=== PATIENT | female | born 1955 | race Caucasian/White ===

== ENCOUNTER → 2016-07-05 | Outpatient (CLI) | payer OTHER ==
[~2016-07-05] MED LIST: 'XANAX0.5 MG PO; ALAVERT10 M1 PO; ALVESCO80 MCG/ACT IH; ARAVA20 MG PO; ASPIR-TRIN325 MG PO; ASPIRIN325 M2 PO; ASPIRIN325 MG PO; ATENOLOL100 MG PO; BISACODYL5 MG PO; CEFTRIAXON2 GM/50 ML IV; CELEBREX200 MG PO; CENTRUM1 TA1 PO; CHLORTHALIDONE25 MG PO; CORRECTIVE LAXAT5 MG PO; DUONEB 3 MG/3 ML3 M1 INH; FISH OIL 10001000 MG PO; FLONASE0.05 MG/AC NAS; IBUPROFEN400 MG PO; METFORMIN500 MG PO; MULTIVITAMIN1 CTB PO; NEXIUM40 MG PO; NYSTAT-RX1 POW; OMEGA-3 FISH1200 MG PO; PLAQUENIL200 MG PO; PREDNISONE10 MG PO; PREDNISONE20 MG PO; PROAIR HFA0.09 MG/AC IH; PROTONIX40 MG PO; SOLU-MEDROL IV; VANCOMYCIN IV; VI-C1 CAP PO; VICODIN ES 7501 TAB PO; VITAMIN C1000 M2 PO
[2016-07-05 11:36] LABS: BASO # 0.1 10*3/uL (0.0-0.1); BASO % 0.5 % (0.0-1.0); EOS # 0.2 10*3/uL (0.0-0.4); EOS % 1.9 % (1.0-4.0); HEMATOCRIT 38.2 % (37.0-47.0); HEMOGLOBIN 11.9 g/dl (12.0-16.0); LYMPH # 2.1 10*3/uL (1.3-4.4); LYMPH % 21.6 % (27.0-41.0); MEAN CELL VOLUME 87.6 fl (81.0-99.0); MEAN CORPUSCULAR HGB 27.3 pg (27.0-31.0); MEAN CORPUSCULAR HGB CONC 31.2 g/dl (33.0-37.0); MEAN PLATELET VOLUME 9.5 fl (9.6-12.3); MONO # 0.9 10*3/uL (0.1-1.0); MONO % 9.2 % (3.0-9.0); NEUT # 6.6 10*3/uL (2.3-7.9); NEUT % 66.4 % (47.0-73.0); PLATELET COUNT AUTOMATED 287 10*3/uL (130-400); RED BLOOD COUNT 4.36 10*6/uL (4.10-5.10); RED CELL DISTRI WIDTH 15.3 % (0-14.5); WHITE BLOOD COUNT 9.9 10*3/uL (4.8-10.8)
[2016-07-05 12:24] LABS: ALBUMIN 3.4 gm/dl (3.1-4.5); ALKALINE PHOSPHATASE 60 U/L (45-117); BILIRUBIN, TOTAL 0.4 mg/dl (0.2-1.0); BUN 19 mg/dl (7-24); CARBON DIOXIDE 29 mmol/L (21-32); CHLORIDE 104 mmol/L (98-107); CHOLESTEROL 187 mg/dL (<200); EST GLOM FILT AFRICAN AMERICAN > 60 ml/min; FREE T4 1.12 ng/dl (0.76-1.46); GLUCOSE 98 mg/dL (65-99); HDL CHOLESTEROL 76 mg/dl (40-60); LDL CHOLESTEROL 79 mg/dL (9-159); POTASSIUM 3.6 mmol/L (3.5-5.1); SGOT/AST 12 IU/L (3-35); SGPT/ALT 20 U/L (12-78); SODIUM 142 mmol/L (136-145); TOTAL PROTEIN 7.4 gm/dL (6.4-8.2); TRIGLYCERIDES 162 mg/dl (<150); VLDL CHOLESTEROL 32 mg/dL (6-40)
[2016-07-05 13:33] LABS: FOLIC ACID 9.67 ng/mL (>5.38)
[2016-07-05 14:03] LABS: VITAMIN D, 25-HYDROXY 89.7 ng/mL (30-100)
== END | disposition home or self-care (01) ==
LOC: LAB 03:00
PROVIDERS: Internal Medicine
DX: Z00.00 Encounter for general adult medical examination without abnormal findings (principal); Z13.1 Encounter for screening for diabetes mellitus; Z13.21 Encounter for screening for nutritional disorder; Z13.220 Encounter for screening for lipoid disorders; E11.65 Type 2 diabetes mellitus with hyperglycemia; M06.9 Rheumatoid arthritis, unspecified; I27.0 Primary pulmonary hypertension; R06.02 Shortness of breath; J18.9 Pneumonia, unspecified organism; E55.9 Vitamin D deficiency, unspecified; R53.81 Other malaise

== ENCOUNTER → 2016-12-29 | Outpatient (CLI) | payer OTHER | END | disposition home or self-care (01) | LOC: US 02:21 | DX: I65.23 Occlusion and stenosis of bilateral carotid arteries (principal); R20.0 Anesthesia of skin ==

== ENCOUNTER → 2017-07-11 | Outpatient (CLI) | payer OTHER ==
[~2017-07-11] MED LIST changes: +COREG3.125 MG PO; +COZAAR50 M1 PO; +LASIX20 MG PO; +LEXAPRO20 MG PO; +POTASSIUM CHLO20 ME3 PO; +SEREVENT DISKU50 MCG INH; +SILDENAFIL20 M1 PO; +STRIVERDI RESPIM4 GM INH
--- NOTE | ~2017-07-11 | ST ---
[place], [place] EXERCISE STRESS TEST REPORT NAME: DIOMEDES MULLER UNIT #: [id number] ROOM: DOCTOR: BRANDON BARRIOS MD BIRTHDATE: [birth year] DOS: 07/11/2017 LEXISCAN STRESS EKG REFERRING PHYSICIAN: Dr. Zuleta. INDICATION: pain and shortness of breath. The patient underwent standard protocol Lexiscan stress EKG. The patient's baseline EKG is normal sinus with nonspecific ST-T wave changes. The patient's baseline heart rate is 84 with blood pressure 154/90. The patient's peak heart rate was 93 with blood pressure 158/90. The patient denied any chest pain, was not known to have any arrhythmias or EKG changes. SUMMARY OF FINDINGS: Unremarkable Lexiscan stress EKG. Please see separate report for perfusion scan results. BRANDON BARRIOS MD CM:STRESS:EXERCISE STRESS TEST REPORT [id number] BRANDON BARRIOS MD
== END | disposition home or self-care (01) ==
LOC: CARD 07-06 10:00
DX: R06.02 Shortness of breath (principal); R68.84 Jaw pain

== ENCOUNTER → 2017-12-20 | Outpatient (CLI) | payer OTHER | END | disposition home or self-care (01) | LOC: CARD 01:29 | DX: I27.20 Pulmonary hypertension, unspecified (principal) ==

== ENCOUNTER → 2018-09-19 | Outpatient (CLI) | payer OTHER, MEDICARE ==
[2018-09-19 11:35] LABS: BASO # 0.1 10*3/uL (0.0-0.1); BASO % 0.8 % (0.0-1.0); EOS # 0.3 10*3/uL (0.0-0.4); EOS % 3.7 % (1.0-4.0); HEMATOCRIT 41.8 % (37.0-47.0); HEMOGLOBIN 12.5 g/dl (12.0-16.0); LYMPH # 2.5 10*3/uL (1.3-4.4); LYMPH % 29.5 % (27.0-41.0); MEAN CORPUSCULAR HGB 26.3 pg (27.0-31.0); MEAN CORPUSCULAR HGB CONC 29.9 g/dl (33.0-37.0); MEAN PLATELET VOLUME 9.6 fl (9.6-12.3); MONO # 0.6 10*3/uL (0.1-1.0); MONO % 7.3 % (3.0-9.0); NEUT % 58.5 % (47.0-73.0); PLATELET COUNT AUTOMATED 278 10*3/uL (130-400); RED BLOOD COUNT 4.75 10*6/uL (4.10-5.10); RED CELL DISTRI WIDTH 16.2 % (0-14.5); WHITE BLOOD COUNT 8.6 10*3/uL (4.8-10.8)
[2018-09-19 11:47] LABS: BUN 26 mg/dl (7-24); CHLORIDE 104 mmol/L (98-107); CREATININE 0.98 mg/dL (0.55-1.02); POTASSIUM 3.9 mmol/L (3.5-5.1); SODIUM 141 mmol/L (136-145)
== END | disposition home or self-care (01) ==
LOC: LAB 11:10
PROVIDERS: Internal Medicine Cardiovascular Disease
DX: I50.33 Acute on chronic diastolic (congestive) heart failure (principal); R06.02 Shortness of breath

== ENCOUNTER → 2019-05-06 | Outpatient (CLI) | payer MEDICARE ==
[~2019-05-06] MED LIST changes: +ALPRAZOLAM0.5 M3 PO; +CELECOXIB200 M1 PO; +CLARITIN10 MG PO; +GLUCOPHAGE500 M1 PO; +HYDROCODONE-AC1 EACH PO; +LIPITOR20 MG PO; -METFORMIN500 MG PO; +PREDNISONE5 MG PO; +VITAMIN C1000 M5 PO; +VITAMIN D35000 UNIT PO; +XANAX XR0.5 MG PO
== END | disposition home or self-care (01) ==
LOC: RAD 14:41
DX: M85.88 Other specified disorders of bone density and structure, other site (principal)

== ENCOUNTER 2019-05-21 07:01 | Inpatient (IN) | payer MEDICARE ==
[~2019-05-21] VITALS: Ht 154.9 cm; Wt 88.9 kg
[~2019-05-21 07:01] MED LIST changes: -ALPRAZOLAM0.5 M3 PO; -CELECOXIB200 M1 PO; -CLARITIN10 MG PO; -HYDROCODONE-AC1 EACH PO; -LIPITOR20 MG PO; -PREDNISONE5 MG PO; -VITAMIN C1000 M5 PO; -VITAMIN D35000 UNIT PO; -XANAX XR0.5 MG PO
[2019-05-21 07:02] VITALS: BP 155/85
[2019-05-21 09:20] VITALS: BP 188/93
--- NOTE | 2019-05-21 10:24 | NUR ---
PATIENT TAKEN TO 5TH FLOOR BY YUNG RAHMAN AT THIS TIME. REPORT GIVEN TO YUNG RAHMAN AND PADMA CUETO RN AT THIS TIME. NO CHANGE IN PATIENT STATUS.
--- NOTE | 2019-05-21 10:30 | NUR ---
Time: 1029 A 63 year old FEMAL admitted to 5E under services of DR. IDALIA CASTRO,ROXANNE. Pt. arrived via bed from ER. Chief complaint: INTRACTABLE BACK PAIN. YUNG MORALES
--- NOTE | 2019-05-21 10:36 | NUR ---
YUNG RAHMAN NOTIFED OF PATIENT NOT TAKING BP MED THIS MORNING.
[2019-05-21] MEDS ORDERED: CLARITIN10 MG PO (10:57)
[2019-05-21] MEDS ORDERED: ARAVA20 MG PO (10:57)
[2019-05-21] MEDS ORDERED: XANAX XR0.5 MG PO (10:58)
[2019-05-21] MEDS ORDERED: LIPITOR20 MG PO (10:58)
[2019-05-21] MEDS ORDERED: VITAMIN D35000 UNIT PO (10:59)
[2019-05-21] MEDS ORDERED: VITAMIN C1000 M5 PO (10:59)
[2019-05-21] MEDS ORDERED: ALPRAZOLAM0.5 M3 PO (11:22)
--- NOTE | 2019-05-21 11:50 | NUR ---
MEDICATED WITH PO NORCO AND XANAX ORDERED PER PT REQUEST FOR C/O PAIN RATED 10/10 TO LUMBAR AREA/BUTTOCKS AND ANXIETY. PT LEAVING FOR LUMBAR MRI.
--- NOTE | 2019-05-21 13:00 | NUR ---
MEDICATIONS EFFECTIVE FOR PAIN/ANXIETY.
[2019-05-21 15:56] VITALS: BP 155/87
[2019-05-21 20:00] VITALS: BP 147/83
--- NOTE | 2019-05-21 21:16 | NUR ---
PRN NORCO GIVEN FOR PT COMPLAINTS OF 7/10 BACK PAIN. CALL LIGHT WITHIN REACH,WILL CHAIM
--- NOTE | 2019-05-21 23:43 | NUR ---
NOTIFIED DR. FRIEDMAN OF PATIENTS BLOOD PRESSURE BEING 168/100. PATIENT STATED THAT SHE ISN'T IN TOO MUCH PAIN RIGHT NOW. ORDER RECIEVED FOR 0.1MG OF CLONIDINE TO BE GIVEN NOW
--- NOTE | 2019-05-22 04:27 | NUR ---
PT SLEEPING, NO DISTRESS. CALL LIGHT WITHIN REACH
--- NOTE | 2019-05-22 06:54 | NUR ---
NOTIFIED DR. FRIEDMAN OF PATIENT CRYING IN PAIN. NOTIFIED HER SHE WAS JUST GIVEN A NORCO BUT IS IN SEVERE PAIN. ORDER RECIEVED FOR 0.25MG OF DIALUDID
--- NOTE | 2019-05-22 07:33 | NUR ---
PATIENTS PAIN A LITTLE BETTER AT THIS TIME. CALL LIGHT WITHIN REACH, WILL MONITOR
[2019-05-22 08:00] VITALS: BP 164/94
--- NOTE | 2019-05-22 08:21 | NUR ---
Notified Dr. Song Bernard is away until 06/[address] Mullins having phone coverage starting 05/24.
--- NOTE | 2019-05-22 08:56 | NUR ---
PHYSICAL THERAPY Screen recieved as well as orders for Physical Therapy will follow thank you Britt Nagel PT
--- NOTE | 2019-05-22 09:00 | NUR ---
Hot Plate Plywood Press Laborer in to talk to patient. Patient states lives at home with her . There are 1 steps in the home. Physician: Dr. Katharina Zuleta [facility]acy: [facility] [place] Home health services: none Patient's level of ADLs: INDEPENDENT Patient has working utilities: yes DME: O2 @ 4L nc, portable O2 tanks, nebulizer, O2 supplier [employer] Follow-up physician's appointment after d/c: she prefers to make her own follow up appt after discharge Does patient want to access PORTAL?: no Discharge plan discussed with patient. at bedside. She lives at home with her . She is normally independent in her ADLs and ambulation. Discussed home health care services and she denies any home needs at this time. When medically stable she will be discharged to home. Her will provide transportation on discharge. Disc bulge L3-4 on MRI lumbar spine. Discussed discharge planning with Dr. Zuleta. Started dilaudid for prn pain control, gabapentin, and solumedrol. GIAN ALCAZAR
[2019-05-22 09:23] LABS: BASO % 0.3 % (0.0-1.0); EOS % 0.2 % (1.0-4.0); HEMATOCRIT 43.4 % (37.0-47.0); LYMPH % 8.1 % (27.0-41.0); MEAN CELL VOLUME 89.5 fl (81.0-99.0); MEAN CORPUSCULAR HGB 26.8 pg (27.0-31.0); MEAN PLATELET VOLUME 9.4 fl (9.6-12.3); MONO # 0.3 10*3/uL (0.1-1.0); MONO % 2.5 % (3.0-9.0); NEUT # 10.5 10*3/uL (2.3-7.9); NEUT % 88.6 % (47.0-73.0); PLATELET COUNT AUTOMATED 320 10*3/uL (130-400); RED BLOOD COUNT 4.85 10*6/uL (4.10-5.10); RED CELL DISTRI WIDTH 15.8 % (0-14.5); WHITE BLOOD COUNT 11.8 10*3/uL (4.8-10.8)
[2019-05-22 10:01] LABS: POTASSIUM 4.8 mmol/L (3.5-5.1)
[2019-05-22 10:10] LABS: ALBUMIN 3.1 gm/dl (3.1-4.5); CREATININE 1.41 mg/dL (0.55-1.02); TOTAL PROTEIN 7.8 gm/dL (6.4-8.2)
--- NOTE | 2019-05-22 11:34 | NUR ---
Occupational Therapy evaluation completed on 5 with full eval to follow. Precautions include severe back pain, new ww use, o2 dependent, fall risk, assist w/ ADLs, moderate complexity level [id number]. Recommend SNF but patient insists upon d/c home w/ . Patient is agreeble but hesitant about home health SN,OT,PT upon d/c. Thank you. Aria Lopez OTR/l
--- NOTE | 2019-05-22 12:15 | NUR ---
Nursing screen and Occupational Therapy referral received. Thank you. Aria Lopez OTR/L
--- NOTE | 2019-05-22 12:20 | NUR ---
PHYSICAL THERAPY Eval completed pt moderate level of complexity 92420 pt would benefit from further rehab prior to home as functionally very limited due to pain however she states she will go home, may need FWW as unsure if has one at home and was he sisters. PT to work on Transfers, LB education with reg to tranfers/positioning for protection, Amb with AD for safety and increase mobility. Britt Nagel PT
[2019-05-22 16:00] VITALS: BP 146/82
--- NOTE | 2019-05-22 16:01 | NUR ---
Medicated with dilaudid per prn order for c/o back pain and left leg pain.
--- NOTE | 2019-05-22 17:00 | NUR ---
States that dilaudid was effective.
[2019-05-22 20:00] VITALS: BP 138/80
--- NOTE | 2019-05-22 20:01 | NUR ---
PRN DILAUDID AND NORCO GIVEN AT THIS TIME FOR PT COMPLAINTS OF 10/10 BACK PAIN. PATIENT LAYING ON SIDE CRYING. CALL LIGHT WITHIN REACH, WILL MONITOR
--- NOTE | 2019-05-22 22:25 | NUR ---
PRN MEDICATION EFFECTIVE PER PT
[2019-05-23] VITALS: BP 142/80
--- NOTE | 2019-05-23 00:01 | NUR ---
PRN DILAUDID GIVEN FOR PT COMPLAINTS OF DISTRESSING PAIN RATING IT 8/10. CALL LIGHT WITHIN REACH, WILL MONITOR
--- NOTE | 2019-05-23 00:45 | NUR ---
PT STATES PAIN MEDICATION EFFECTIVE. MORE PILLOWS PROVIDED FOR PATIENT FOR COMFORT
--- NOTE | 2019-05-23 02:15 | NUR ---
PRN NORCO GIVEN FOR PT COMPLAINTS OF BACK PAIN GOING DOWN HER LEGS RATING IT 4/10. CALL LIGHT WITHIN REACH, WILL MONITOR
--- NOTE | 2019-05-23 06:50 | NUR ---
PRN DILAUDID GIVEN FOR PT COMPLAINTSOF PAIN RATING IT 12/18.CALL LIGHT WITHIN REACH, WILL MONITOR
--- NOTE | 2019-05-23 07:30 | NUR ---
VITALS STABLE. ALERT AND ORIENTED X 3. REECE. CAP REFILL < 3 SECONDS. SKIN TURGOR NON-TENTING. HEART SOUNDS NORMAL. POSITIVE PEDAL PULSES. RESPIRATIONS EASY AND NON-LABORED. PO2 96% ON 4L N/C. LUNGS CLEAR THROUGHOUT. ABDOMEN SOFT, NON-TENDER, NON-DISTENDED. BOWEL SOUNDS X 4. SKIN WARM, DRY AND INTACT. IV IN RIGHT ANTECUBITAL INTACT- NO REDNESS OR SWELLING. PT PLEASANT AND COOPERATIVE. NO COMPLAINTS AT THIS TIME. WILL CONTINUE TO ASSESS. EDI TOSCANO [facility]
[2019-05-23 08:00] VITALS: BP 144/88
--- NOTE | 2019-05-23 08:17 | NUR ---
OT NOTE Pt was seen this A.M. 1:1 for 17 minute OT session. Upon arrival pt was supine in bed. Pt identified by name and and had complaints of 5/10 low back pain and 6/10 LLE pain. Pt presented to therapy with continuous 5L-O2 via NC which she remained on throughout the entire session. Pt transferred supine to sit EOB with SBA. While sitting EOB pt donned B shoes with SBA. Sit to stand completed from bed level with CGA for safety followed by functional mobility into the bathroom with CGA and use of w/w. There she transferred on/off standard commode with CGA and use of grab bar for UE support. Functional mobility then completed to the bedside chair with CGA and use of w/w with one seated rest break. Pt was left sitting upright in the bedside chair with call light in hand, tray table in place, and phone in reach. Continue with rec D/C plan to SNF. OZZIE Garzon
--- NOTE | 2019-05-23 08:19 | NUR ---
GIVEN NORCO 1 TAB PO FOR PT COMPLAINTS OF 8/10 BACK/LEG PAIN AFTER PHYSICAL THERAPY. PT SITTING UP IN CHAIR WITH CALL LIGHT IN REACH. WILL CONTINUE TO ASSESS. EDI FERRARI
--- NOTE | 2019-05-23 09:00 | NUR ---
Musical Instrument Supervisor in to see patient. She is sitting up in her bedside chair without distress noted eating breakfast. at bedside. No new needs or request at this time. When medically stable she will be discharged to home. Per patient Dr. Zuleta said she will discharge her tomorrow as long as she remains stable.
--- NOTE | 2019-05-23 09:04 | NUR ---
PHYSICAL THERAPY Patient presented to therapy in supine with head of bed elevated and visitng in room with patient. Patient was identified by name umair CARRASCO on wristband. Patient gives informed consent for treamtment. Patient has report of 5/10 pain in the low back and 6/10 pain in the L LE. Patient is on 5 liters of spoO2 VIA NASAL CANULA. Patient performed supine to sitting transfer to EOB with SBA. Patient performed sit to stand transfer from EOB with SBA. Patient ambulated 55' x 1 with Wh Walker and CGA x 1 with increased pain on L LE when wt bearing. Patient sat in low chair with MIN A X 1. Patient sit to stand from low chair with MIN A X 1. Patient left in bedside chair with call light within reach and connected to wall outlet with 5 liters of spO2. Patient's was visiting in room with patient. Patient was 1:1 with this MILL CONTROLLER for 18 minutes total. LYNNETTE JONES MILL CONTROLLER
--- NOTE | 2019-05-23 09:19 | NUR ---
ERAN EFFECTIVE. PT RATES PAIN A /10. ASKING IF SHE CAN GET UP AND GET A SHOWER. WILL CONTINUE TO ASSESS. EDI TOSCANO [facility]
--- NOTE | 2019-05-23 11:06 | NUR ---
PT RESTING IN BED. RESPIRATIONS EASY AND REGULAR. PLEASANT AND COOPERATIVE. NO COMPLAINTS AT THIS TIME. WILL CONTINUE TO ASSESS. EDI FERRARI
--- NOTE | 2019-05-23 14:47 | NUR ---
PHYSICAL THERAPY CO-SIGN I approve of the Physical Therapy notes written above. Britt Nagel PT
--- NOTE | 2019-05-23 15:45 | NUR ---
Medicated with norco per prn order for complaints back pain.
[2019-05-23 16:00] VITALS: BP 124/79
--- NOTE | 2019-05-23 16:30 | NUR ---
States that norco was effective.
--- NOTE | 2019-05-23 19:51 | NUR ---
24 HR chart check completed.
[2019-05-23 20:00] VITALS: BP 141/47
--- NOTE | 2019-05-23 21:00 | NUR ---
RESTING IN BED WITH NO ACUTE DISTRESS NOTED. RESPIRATIONS EASY. LUNGS DIMINISHED, CLEAR. PULSE OX 100% 4L. CALL LIGHT WITHIN REACH. NO VOICED COMPLAINTS. BED ALARM MAINTAINED FOR SAFETY. PRESENT AT BEDSIDE
--- NOTE | 2019-05-23 21:47 | NUR ---
REQUESTED AND RECEIVED DILAUDID IV PER PRN ORDER FOR COMPLAINTS OF LEFT HIP PAIN RATING A 7. CALL LIGHT WITHIN REACH. WILL MONITOR FOR EFFECTIVENESS
[2019-05-24] VITALS: BP 147/70
--- NOTE | 2019-05-24 | NUR ---
MEDS APPEAR EFFECTIVE. SLEEPING. RESPIRATIONS EASY. VSS. CALL LIGHT WITHIN REACH. BED ALARM MAINTAINED FOR SAFETY
[2019-05-24] MEDS ORDERED: CELECOXIB200 M1 PO (00:33)
--- NOTE | 2019-05-24 01:52 | NUR ---
DR FRIEDMAN HERE TO ASSESS PATIENT AND DISCUSS PLAN OF CARE
--- NOTE | 2019-05-24 03:05 | NUR ---
awake, assisted to br by . upon returning to bed patient in tears and c/o left hip pain rating a 10. medicatde with norco and xanax per prn order. will monitor
--- NOTE | 2019-05-24 05:00 | NUR ---
EARLIER MEDS APPEAR EFFECTIVE. SLEEPING
--- NOTE | 2019-05-24 06:03 | NUR ---
MEDICATED WITH DILAUDID IV PER PRN ORDER FOR COMPLAINTS OF LEFT HIP PAIN RATING A 9. CALL LIGHT WITHIN REACH. WILL MONITOR FOR EFFECTIVENESS. PRESENT AT BEDSIDE
--- NOTE | 2019-05-24 06:03 | NUR ---
MEDICATED WITH DILAUDID IV PER PRN ORDER FOR COMPLAINTS OF LEFT HIP PAIN RATING A 9. CALL LIGHT WITHIN REACH. WILL MONITOR FOR EFFECTIVENESS
[2019-05-24 08:00] VITALS: BP 138/98
--- NOTE | 2019-05-24 09:30 | NUR ---
PT NORCO GIVEN FOR C/O OF PAIN
--- NOTE | 2019-05-24 14:15 | NUR ---
PT C/O OF ANXIETY AND ABD PAIN PRN DILAUDID AND XANAX GIVEN PER ORDER
[2019-05-24 16:00] VITALS: BP 124/80
--- NOTE | 2019-05-24 16:14 | NUR ---
MA NORCO GIVEN PER ORDER FOR C/O OF BACK PAIN
--- NOTE | 2019-05-24 16:15 | NUR ---
PRN NORCO GIVEN FOR BACK PAIN RATING 5/10
[2019-05-25] VITALS: BP 155/98
--- NOTE | 2019-05-25 05:45 | NUR ---
PRN NORCO GIVEN FOR LEFT HIP PAIN RATING A 10/10. CALL LIGHT IS WITHIN REACH.
[2019-05-25 06:44] LABS: BASO % 0.1 % (0.0-1.0); HEMATOCRIT 40.3 % (37.0-47.0); HEMOGLOBIN 11.8 g/dl (12.0-16.0); LYMPH # 0.9 10*3/uL (1.3-4.4); LYMPH % 6.9 % (27.0-41.0); MEAN CELL VOLUME 90.2 fl (81.0-99.0); MEAN CORPUSCULAR HGB 26.4 pg (27.0-31.0); MEAN CORPUSCULAR HGB CONC 29.3 g/dl (33.0-37.0); MEAN PLATELET VOLUME 10.3 fl (9.6-12.3); MONO # 0.6 10*3/uL (0.1-1.0); NEUT % 87.4 % (47.0-73.0); PLATELET COUNT AUTOMATED 302 10*3/uL (130-400); RED BLOOD COUNT 4.47 10*6/uL (4.10-5.10); RED CELL DISTRI WIDTH 15.9 % (0-14.5); WHITE BLOOD COUNT 12.6 10*3/uL (4.8-10.8)
--- NOTE | 2019-05-25 06:54 | NUR ---
PRN DILAUDID GIVEN FOR INEFFECTIVE NORCO. CALL LIGHT IS WITHIN REACH.
[2019-05-25 07:10] LABS: BUN 35 mg/dl (7-24); CHLORIDE 102 mmol/L (98-107); CREATININE 1.06 mg/dL (0.55-1.02); POTASSIUM 5.3 mmol/L (3.5-5.1); SODIUM 136 mmol/L (136-145)
[2019-05-25] MEDS ORDERED: PREDNISONE5 MG PO (07:58)
[2019-05-25] MEDS ORDERED: HYDROCODONE-AC1 EACH PO (07:58)
[2019-05-25 08:00] VITALS: BP 145/78
--- NOTE | 2019-05-25 10:14 | NUR ---
Discharge instructions reviewed with patient/family. Patient receptive and verbalizes understanding. Follow-up care arranged. Written instructions given to patient/family. YUNG MORALES
--- NOTE | 2019-05-27 07:35 | NUR ---
OCCUPATIONAL THERAPY CO-SIGN I approve of the Occupational Therapy notes written above. MARLIN MEJIA OTR/Peter
== END 2019-05-25 10:36 | disposition home or self-care (01) | DRG 552 ==
LOC: ED 07:01 → EDHOLD 09:05 → 5E 09:05
PROVIDERS: ADMIT Internal Medicine
DX: M48.061 Spinal stenosis, lumbar region without neurogenic claudication (principal); J96.10 Chronic respiratory failure, unspecified whether with hypoxia or hypercapnia; J44.9 Chronic obstructive pulmonary disease, unspecified; M06.9 Rheumatoid arthritis, unspecified; R62.7 Adult failure to thrive; M54.16 Radiculopathy, lumbar region; E11.65 Type 2 diabetes mellitus with hyperglycemia; T38.0X5A Adverse effect of glucocorticoids and synthetic analogues, initial encounter; E11.22 Type 2 diabetes mellitus with diabetic chronic kidney disease; N18.9 Chronic kidney disease, unspecified; I12.9 Hypertensive chronic kidney disease with stage 1 through stage 4 chronic kidney disease, or unspecified chronic kidney disease; Z68.37 Body mass index [BMI] 37.0-37.9, adult; Z87.891 Personal history of nicotine dependence; Y92.89 Other specified places as the place of occurrence of the external cause

== ENCOUNTER → 2019-07-04 | Outpatient (CLI) | payer MEDICARE ==
[~2019-07-04] MED LIST changes: +ALPRAZOLAM0.5 M3 PO; +CELECOXIB200 M1 PO; +CLARITIN10 MG PO; +HYDROCODONE-AC1 EACH PO; +LIPITOR20 MG PO; +PREDNISONE5 MG PO; +VITAMIN C1000 M5 PO; +VITAMIN D35000 UNIT PO; +XANAX XR0.5 MG PO
[2019-07-04 13:54] LABS: BASO # 0.1 10*3/uL (0.0-0.1); BASO % 0.4 % (0.0-1.0); EOS # 0.1 10*3/uL (0.0-0.4); EOS % 1.1 % (1.0-4.0); HEMATOCRIT 40.6 % (37.0-47.0); LYMPH # 1.7 10*3/uL (1.3-4.4); MEAN CELL VOLUME 89.8 fl (81.0-99.0); MEAN CORPUSCULAR HGB 26.5 pg (27.0-31.0); MEAN CORPUSCULAR HGB CONC 29.6 g/dl (33.0-37.0); MEAN PLATELET VOLUME 9.6 fl (9.6-12.3); MONO # 0.8 10*3/uL (0.1-1.0); MONO % 6.5 % (3.0-9.0); NEUT # 8.8 10*3/uL (2.3-7.9); NEUT % 76.4 % (47.0-73.0); PLATELET COUNT AUTOMATED 312 10*3/uL (130-400); RED BLOOD COUNT 4.52 10*6/uL (4.10-5.10); RED CELL DISTRI WIDTH 15.9 % (0-14.5); WHITE BLOOD COUNT 11.5 10*3/uL (4.8-10.8)
[2019-07-04 14:26] LABS: ALBUMIN 3.2 gm/dl (3.1-4.5); CREATININE 1.4 mg/dL (0.55-1.02); POTASSIUM 3.8 mmol/L (3.5-5.1); TOTAL PROTEIN 7.4 gm/dL (6.4-8.2)
[2019-07-04 14:32] LABS: FREE T4 1.09 ng/dl (0.76-1.46); THYROID STIM HORMONE (HS) 0.827 uIU/ml (0.358-4.75); VITAMIN D, 25-HYDROXY 129.4 ng/mL (30-100)
== END | disposition home or self-care (01) ==
LOC: LAB 13:24
PROVIDERS: Internal Medicine
DX: I10 Essential (primary) hypertension (principal); I27.20 Pulmonary hypertension, unspecified; E11.9 Type 2 diabetes mellitus without complications; E55.9 Vitamin D deficiency, unspecified; M06.9 Rheumatoid arthritis, unspecified; Z13.21 Encounter for screening for nutritional disorder

== ENCOUNTER → 2019-10-27 | Outpatient (CLI) | payer MEDICARE ==
[2019-10-27 14:10] LABS: CREATININE 1.17 mg/dL (0.55-1.02)
== END | disposition home or self-care (01) ==
LOC: LAB 12:56
PROVIDERS: Internal Medicine Advanced Heart Failure and Transplant Cardiology
DX: I50.33 Acute on chronic diastolic (congestive) heart failure (principal); I27.20 Pulmonary hypertension, unspecified; R06.02 Shortness of breath

== ENCOUNTER → 2020-06-29 | Outpatient (CLI) | payer MEDICARE | END | disposition home or self-care (01) | LOC: LAB 13:45 | PROVIDERS: ATTEND Internal Medicine Critical Care Medicine | DX: J43.9 Emphysema, unspecified (principal); E78.00 Pure hypercholesterolemia, unspecified ==

== ENCOUNTER → 2020-07-13 | Outpatient (CLI) | payer MEDICARE ==
[2020-07-13 16:09] LABS: BASO # 0.1 10*3/uL (0.0-0.1); BASO % 0.5 % (0.0-1.0); EOS % 0.4 % (1.0-4.0); HEMATOCRIT 38.2 % (37.0-47.0); LYMPH # 1.3 10*3/uL (1.3-4.4); LYMPH % 11.6 % (27.0-41.0); MEAN CELL VOLUME 88.8 fl (81.0-99.0); MEAN CORPUSCULAR HGB CONC 29.3 g/dl (33.0-37.0); MEAN PLATELET VOLUME 9.6 fl (9.6-12.3); MONO # 0.6 10*3/uL (0.1-1.0); MONO % 5.8 % (3.0-9.0); NEUT # 8.8 10*3/uL (2.3-7.9); NEUT % 81.1 % (47.0-73.0); PLATELET COUNT AUTOMATED 273 10*3/uL (130-400); RED CELL DISTRI WIDTH 15.3 % (0-14.5); WHITE BLOOD COUNT 10.8 10*3/uL (4.8-10.8)
[2020-07-13 16:38] LABS: ALBUMIN 3.1 gm/dl (3.1-4.5); CREATININE 1.22 mg/dL (0.55-1.02); POTASSIUM 4.3 mmol/L (3.5-5.1); TOTAL PROTEIN 7.1 gm/dL (6.4-8.2)
== END | disposition home or self-care (01) ==
LOC: LAB 15:51
PROVIDERS: ATTEND Internal Medicine
DX: I51.7 Cardiomegaly (principal); J96.10 Chronic respiratory failure, unspecified whether with hypoxia or hypercapnia; I10 Essential (primary) hypertension; E11.9 Type 2 diabetes mellitus without complications; R70.0 Elevated erythrocyte sedimentation rate; R79.82 Elevated C-reactive protein (CRP); R53.81 Other malaise; R79.89 Other specified abnormal findings of blood chemistry; M06.9 Rheumatoid arthritis, unspecified; R06.02 Shortness of breath

== ENCOUNTER → 2021-01-31 | Outpatient (CLI) | payer MEDICARE ==
[~2021-01-31] MED LIST changes: +ASPIRIN CHEWABL81 MG PO; +ASPIRIN81 M1 PO; +CARVEDILOL6.25 MG PO; +Ipratropium Brom3 ML NEB; +MEGA RED PO; +NEURONTIN300 MG PO; +PREDNISONE10 M1 PO; +PROAIR HFA8.5 GM INH; +PROTONIX TR40 M1 PO
[2021-01-31 14:32] LABS: CREATININE 2.17 mg/dL (0.55-1.02)
[2021-01-31 14:34] LABS: POTASSIUM 4.9 mmol/L (3.5-5.1)
== END | disposition home or self-care (01) ==
LOC: LAB 13:40
PROVIDERS: ATTEND Internal Medicine Advanced Heart Failure and Transplant Cardiology
DX: I50.33 Acute on chronic diastolic (congestive) heart failure (principal); I27.20 Pulmonary hypertension, unspecified

== ENCOUNTER → 2021-03-15 | Outpatient (CLI) | payer MEDICARE | END | disposition home or self-care (01) | LOC: RAD 03-09 14:00 | PROVIDERS: ATTEND Internal Medicine | DX: M85.852 Other specified disorders of bone density and structure, left thigh (principal); Z78.0 Asymptomatic menopausal state ==

== ENCOUNTER → 2021-05-16 | Outpatient (CLI) | payer MEDICARE ==
[2021-05-16 16:22] LABS: CREATININE 2.29 mg/dL (0.55-1.02); POTASSIUM 4.8 mmol/L (3.5-5.1)
== END | disposition home or self-care (01) ==
LOC: LAB 15:13
PROVIDERS: ATTEND Internal Medicine Advanced Heart Failure and Transplant Cardiology
DX: I27.20 Pulmonary hypertension, unspecified (principal); I11.0 Hypertensive heart disease with heart failure; I50.33 Acute on chronic diastolic (congestive) heart failure; I42.8 Other cardiomyopathies

== ENCOUNTER → 2022-03-13 | Outpatient (CLI) | payer MEDICARE ==
[2022-03-13 14:09] LABS: CREATININE 1.9 mg/dL (0.55-1.02); POTASSIUM 4.1 mmol/L (3.5-5.1); TOTAL PROTEIN 7.5 gm/dL (6.4-8.2)
== END | disposition home or self-care (01) ==
LOC: LAB 13:25
PROVIDERS: ATTEND Internal Medicine Advanced Heart Failure and Transplant Cardiology
DX: I50.30 Unspecified diastolic (congestive) heart failure (principal); R73.09 Other abnormal glucose; Z13.0 Encounter for screening for diseases of the blood and blood-forming organs and certain disorders involving the immune mechanism; Z13.1 Encounter for screening for diabetes mellitus; Z13.220 Encounter for screening for lipoid disorders; Z13.228 Encounter for screening for other metabolic disorders; Z13.29 Encounter for screening for other suspected endocrine disorder; Z13.6 Encounter for screening for cardiovascular disorders; Z13.89 Encounter for screening for other disorder; Z13.9 Encounter for screening, unspecified

== ENCOUNTER → 2022-10-12 | Outpatient (CLI) | payer MEDICARE ==
[2022-10-12 19:03] LABS: POTASSIUM 4.7 mmol/L (3.4-5.1)
== END | disposition home or self-care (01) ==
LOC: LAB 18:18
PROVIDERS: ATTEND Internal Medicine Advanced Heart Failure and Transplant Cardiology
DX: I13.0 Hypertensive heart and chronic kidney disease with heart failure and stage 1 through stage 4 chronic kidney disease, or unspecified chronic kidney disease (principal); I50.32 Chronic diastolic (congestive) heart failure; E11.22 Type 2 diabetes mellitus with diabetic chronic kidney disease; N18.31 Chronic kidney disease, stage 3a; K31.84 Gastroparesis

== ENCOUNTER → 2022-11-20 | Outpatient (CLI) | payer MEDICARE ==
[~2022-11-20] MED LIST changes: +BUMETANIDE2 MG PO; +GLIMEPIRIDE4 M1 PO; +REGLAN5 MG PO; +TRULICITY0.75 MG/0. SC
== END | disposition home or self-care (01) ==
LOC: MRI 01:49
PROVIDERS: ATTEND Internal Medicine
DX: M51.26 Other intervertebral disc displacement, lumbar region (principal); M48.061 Spinal stenosis, lumbar region without neurogenic claudication; M47.817 Spondylosis without myelopathy or radiculopathy, lumbosacral region; I27.20 Pulmonary hypertension, unspecified; R42 Dizziness and giddiness; R26.89 Other abnormalities of gait and mobility

== ENCOUNTER → 2022-12-06 | Outpatient (CLI) | payer MEDICARE | END | disposition home or self-care (01) | LOC: MAMMO 00:24 | PROVIDERS: ATTEND Internal Medicine | DX: N64.4 Mastodynia (principal) ==

== ENCOUNTER → 2023-04-10 | Outpatient (CLI) | payer MEDICARE | END | disposition home or self-care (01) | LOC: US 03:02 | PROVIDERS: ATTEND Internal Medicine | DX: I65.23 Occlusion and stenosis of bilateral carotid arteries (principal); R42 Dizziness and giddiness ==

== ENCOUNTER 2024-01-02 16:42 | Inpatient (IN) | payer MEDICARE ==
[~2024-01-02] VITALS: Ht 152.4 cm; Wt 73.5 kg
[~2024-01-02 16:42] MED LIST changes: +ADEMPAS2.5 M1 PO; +ALDACTONE25 M1 PO; +EFFER-K20 MEQ PO; +FARXIGA10 M1 PO; +GRALISE300 M1 PO; +LOSARTAN POTASS50 M1 PO; +NORVASC10 MG PO; +NYST SUSP BC; +OXYGEN NAS; +OYSTER SHELL 51 EAC5 PO; +POTASSIUM CHLO20 MEQ PO; +PROAIR DIGIHAL90 MCG INH; +SULFATRIM PEDI473 ML PO; +VIBRAMYCIN100 MG PO; +VITAMIN D310 MC3 PO
[2024-01-02 17:02] VITALS: BP 113/67
[2024-01-02 18:00] LABS: BASO % 0.5 % (0.0-1.0); HEMATOCRIT 35.9 % (37.0-47.0); LYMPH % 12.5 % (27.0-41.0); MEAN CELL VOLUME 78.4 fl (81.0-99.0); MEAN CORPUSCULAR HGB 22.3 pg (27.0-31.0); MEAN CORPUSCULAR HGB CONC 28.4 g/dl (33.0-37.0); MEAN PLATELET VOLUME 9.2 fl (9.6-12.3); MONO # 0.6 10*3/uL (0.1-1.0); MONO % 6.9 % (3.0-9.0); NEUT # 6.5 10*3/uL (2.3-7.9); NEUT % 79.4 % (47.0-73.0); PLATELET COUNT AUTOMATED 252 10*3/uL (130-400); RED BLOOD COUNT 4.58 10*6/uL (4.10-5.10); RED CELL DISTRI WIDTH 19.4 % (0-14.5); WHITE BLOOD COUNT 8.2 10*3/uL (4.8-10.8)
[2024-01-02] MEDS ORDERED: NEXIUM20 M1 PO (18:06)
[2024-01-02 18:11] LABS: ACT PARTIAL THROMBO TIME 26.5 SECONDS (20.0-32.1)
[2024-01-02] MEDS ORDERED: SODIUM CHLORIDE 0.9% 1,000 ML IV ONE (18:15)
[2024-01-02 18:24] LABS: POTASSIUM 4.4 mmol/L (3.4-5.1); TOTAL PROTEIN 6.4 gm/dL (6.0-8.0)
[2024-01-02 19:36] VITALS: BP 134/88
[2024-01-02 20:14] LABS: BILIRUBIN Negative (Negative); BLOOD Negative (Negative); CLARITY Clear (Clear); COLOR Yellow (Yellow); GLUCOSE Negative (Negative); KETONE Negative (Negative); LEUKO ESTERASE Negative (Negative); NITRITE Negative (Negative); PH 5.5 (4.5-8.0); SPECIFIC GRAVITY 1.015 (1.001-1.030); UROBILINOGEN 0.2 E.U./dl (0.0-1.0)
[2024-01-02 20:21] LABS: URINE AMPHETAMINES Negative (1000ng/ml); URINE BARBITURATES Negative (200ng/ml); URINE BENZODIAZEPINES Positive (200ng/ml); URINE CANNABINOIDS (THC) Positive (50ng/ml); URINE COCAINE Positive (300ng/ml); URINE METHADONE Negative (300ng/ml); URINE OPIATES Negative (300ng/ml); URINE PHENCYCLIDINE Negative (25ng/ml)
[2024-01-02 20:30] LABS: BACTERIA 1+
[2024-01-02] MEDS ORDERED: BUMETANIDE 1 MG/4 ML VIAL IV ONE (21:45)
[2024-01-02] MEDS ORDERED: Piperacillin Sodium/Tazobact 50 ML IV ONE (21:45)
[2024-01-02] MEDS ORDERED: Vancomycin Hydrochloride 250 ML IV ONE (21:45)
[2024-01-02] MEDS ORDERED: HEPARIN SODIUM 250 ML IV SCH (21:50)
[2024-01-02 22:11] VITALS: BP 100/72
[2024-01-02 23:15] VITALS: BP 105/65
[2024-01-02] MEDS ORDERED: DEXTROSE 10 % IN WATER 250 ML IV PRN (23:15)
[2024-01-02] MEDS ORDERED: Albuterol Sulfate 2.5 MG/3 ML VIAL NEB SCH (23:35)
[2024-01-03] VITALS (8 sets, daily range): BP systolic 110–165; BP diastolic 71–92
[2024-01-03 03:43] LABS: BASO % 0.3 % (0.0-1.0); LYMPH # 0.9 10*3/uL (1.3-4.4); LYMPH % 11.8 % (27.0-41.0); MEAN CORPUSCULAR HGB 22.6 pg (27.0-31.0); MEAN CORPUSCULAR HGB CONC 28.6 g/dl (33.0-37.0); MONO # 0.5 10*3/uL (0.1-1.0); MONO % 6.5 % (3.0-9.0); NEUT # 6.3 10*3/uL (2.3-7.9); NEUT % 81.1 % (47.0-73.0); PLATELET COUNT AUTOMATED 244 10*3/uL (130-400); RED BLOOD COUNT 4.43 10*6/uL (4.10-5.10); RED CELL DISTRI WIDTH 19.1 % (0-14.5); WHITE BLOOD COUNT 7.7 10*3/uL (4.8-10.8)
[2024-01-03 04:02] LABS: POTASSIUM 4.3 mmol/L (3.4-5.1)
[2024-01-03] MEDS ORDERED: Piperacillin Sodium/Tazobact 50 ML IV SCH (06:00)
[2024-01-03] MEDS ORDERED: GABAPENTIN 300 MG CAP PO SCH (06:00)
[2024-01-03] MEDS ORDERED: OMEPRAZOLE 20 MG CAP PO SCH (06:00)
[2024-01-03] MEDS ORDERED: GLIMEPIRIDE 2 MG TAB PO SCH (07:30)
[2024-01-03] MEDS ORDERED: INSULIN LISPRO 1 UNIT/0.01 ML SQ SCH (07:30)
[2024-01-03] MEDS ORDERED: Hydroxychloroquine Sulfate 200 MG TAB PO SCH (10:00)
[2024-01-03] MEDS ORDERED: ESCITALOPRAM OXALATE 20 MG TAB PO SCH (10:00)
[2024-01-03] MEDS ORDERED: ASPIRIN, CHEWABLE 81 MG TAB PO SCH (10:00)
[2024-01-03] MEDS ORDERED: SPIRONOLACTONE 25 MG TAB PO SCH (10:00)
[2024-01-03] MEDS ORDERED: BUMETANIDE 1 MG TAB PO SCH (10:00)
[2024-01-03] MEDS ORDERED: LORATADINE 10 MG TAB PO SCH (10:00)
[2024-01-03] MEDS ORDERED: ATORVASTATIN CALCIUM 20 MG TAB PO SCH (10:00)
[2024-01-03] MEDS ORDERED: predniSONE 10 MG TAB PO SCH (10:00)
[2024-01-03] MEDS ORDERED: LEFLUNOMIDE 20 MG TAB PO SCH (10:00)
[2024-01-03] MEDS ORDERED: POTASSIUM CHLORIDE 20 MEQ TAB PO SCH (10:00)
[2024-01-03] MEDS ORDERED: ACETAMINOPHEN 325 MG TAB PO PRN (18:00)
[2024-01-03] MEDS ORDERED: HEPARIN SODIUM 5,000 UNIT/ML VIAL SC SCH (22:00)
[2024-01-03] MEDS ORDERED: VANCOMYCIN/WATER FOR INJ (PEG) 150 ML IV SCH (22:00)
[2024-01-04] VITALS: BP 116/76
[2024-01-04 05:38] LABS: POTASSIUM 4.7 mmol/L (3.4-5.1)
[2024-01-04 06:08] LABS: BASO % 0.3 % (0.0-1.0); HEMATOCRIT 33.4 % (37.0-47.0); LYMPH # 1.8 10*3/uL (1.3-4.4); LYMPH % 27.6 % (27.0-41.0); MEAN CELL VOLUME 77.7 fl (81.0-99.0); MEAN CORPUSCULAR HGB CONC 29.6 g/dl (33.0-37.0); MEAN PLATELET VOLUME 9.6 fl (9.6-12.3); MONO # 0.7 10*3/uL (0.1-1.0); MONO % 11.2 % (3.0-9.0); NEUT % 60.4 % (47.0-73.0); PLATELET COUNT AUTOMATED 253 10*3/uL (130-400); RED CELL DISTRI WIDTH 19.6 % (0-14.5); WHITE BLOOD COUNT 6.6 10*3/uL (4.8-10.8)
[2024-01-04 08:00] VITALS: BP 148/78
[2024-01-04] MEDS ORDERED: BUMETANIDE 2 MG IV SCH (10:00)
[2024-01-04] MEDS ORDERED: BUMETANIDE 2.5 MG/10 ML VIAL IV SCH (10:00)
[2024-01-04] MEDS ORDERED: Metoprolol Tartrate 25 MG TAB PO SCH (11:30)
[2024-01-04 12:00] VITALS: BP 109/67
[2024-01-04 14:55] LABS: URINE CREATININE RANDOM 19.44 mg/dL
[2024-01-04 16:00] VITALS: BP 110/68
[2024-01-04] MEDS ORDERED: Ondansetron Hydrochloride 4 MG/2 ML VIAL IV PRN (16:30)
[2024-01-04 20:00] VITALS: BP 101/55
[2024-01-04] MEDS ORDERED: APIXABAN 5 MG TAB PO SCH (22:00)
[2024-01-04] MEDS ORDERED: Dicyclomine Hydrochloride 20 MG TAB PO SCH (22:45)
[2024-01-05] VITALS: BP 105/58
[2024-01-05] MEDS ORDERED: LORazepam 2 MG/ML VIAL IV PRN (01:15)
[2024-01-05 04:04] LABS: BASO # 0.1 10*3/uL (0.0-0.1); BASO % 0.4 % (0.0-1.0); HEMATOCRIT 41.1 % (37.0-47.0); LYMPH # 4.3 10*3/uL (1.3-4.4); LYMPH % 35.5 % (27.0-41.0); MEAN CORPUSCULAR HGB 22.8 pg (27.0-31.0); MEAN CORPUSCULAR HGB CONC 27.7 g/dl (33.0-37.0); MEAN PLATELET VOLUME 9.8 fl (9.6-12.3); MONO # 1.2 10*3/uL (0.1-1.0); MONO % 9.6 % (3.0-9.0); NEUT # 6.4 10*3/uL (2.3-7.9); NEUT % 53.6 % (47.0-73.0); NUCLEATED RED BLOOD CELL 0.1 10*3/uL (0.0-0.0); NUCLEATED RED BLOOD CELL 0.5 % (0.0-0.0); PLATELET COUNT AUTOMATED 262 10*3/uL (130-400); RED CELL DISTRI WIDTH 20.6 % (0-14.5)
[2024-01-05 04:13] LABS: MEAN CELL VOLUME 82.2 fl (81.0-99.0)
[2024-01-05 04:39] LABS: TOTAL PROTEIN 6.9 gm/dL (6.0-8.0)
[2024-01-05 04:45] LABS: POTASSIUM 6.2 mmol/L (3.4-5.1)
[2024-01-05] MEDS ORDERED: SODIUM POLYSTYRENE SULFONATE 15 GM/60 ML BOT PO ONE (05:10)
[2024-01-05 08:24] LABS: VITAMIN D, 25-HYDROXY 127.5 ng/mL (30-100)
[2024-01-05 08:50] VITALS: BP 100/48
[2024-01-05] MEDS ORDERED: BUMETANIDE 1 MG TAB PO SCH (10:00)
[2024-01-05] MEDS ORDERED: Tamsulosin Hydrochloride 0.4 MG CAP PO SCH (10:00)
[2024-01-05] MEDS ORDERED: LEPTOSPERMUM HONEY 4 X 5 INCH WOUND DRESSING T ONE (10:27)
[2024-01-05] MEDS ORDERED: FOAM BANDAGE 1 EACH BANDAGE T ONE (10:27)
[2024-01-05] MEDS ORDERED: DEXTROSE 10 % IN WATER 250 ML IV ONE (10:49)
[2024-01-05 11:03] VITALS: BP 70/43
[2024-01-05] MEDS ORDERED: DEXTROSE 5% SALINE 0.45% 1,000 ML IV SCH (11:10)
[2024-01-05 11:17] VITALS: BP 70/43
[2024-01-05 11:36] LABS: HEMATOCRIT 38.4 % (37.0-47.0); MEAN CELL VOLUME 82.4 fl (81.0-99.0); MEAN CORPUSCULAR HGB 22.7 pg (27.0-31.0); MEAN CORPUSCULAR HGB CONC 27.6 g/dl (33.0-37.0); MEAN PLATELET VOLUME 9.9 fl (9.6-12.3); NUCLEATED RED BLOOD CELL 0.1 10*3/uL (0.0-0.0); NUCLEATED RED BLOOD CELL 0.3 % (0.0-0.0); PLATELET COUNT AUTOMATED 259 10*3/uL (130-400); RED BLOOD COUNT 4.66 10*6/uL (4.10-5.10); RED CELL DISTRI WIDTH 20.5 % (0-14.5); WHITE BLOOD COUNT 17.9 10*3/uL (4.8-10.8)
[2024-01-05 11:39] LABS: MANUAL DIFF REFLEX YES
[2024-01-05 11:52] LABS: BURR CELLS MODERATE; OVALOCYTES FEW; PLATELET SUFFICIENCY NORMAL (NORMAL); POLYCHROMASIA SLIGHT; ROULEAUX SLIGHT; SCHISTOCYTES FEW; TOTAL CELLS COUNTED 100 #CELLS
[2024-01-05 12:00] VITALS: BP 108/46; BP 52/44
[2024-01-05 12:00] LABS: ALKALINE PHOSPHATASE 126 U/L (46-116); BUN 33 mg/dl (9-23); CHLORIDE 98 mmol/L (98-107); POTASSIUM 5.8 mmol/L (3.4-5.1); TOTAL PROTEIN 6.7 gm/dL (6.0-8.0)
[2024-01-05] MEDS ORDERED: SODIUM CHLORIDE 0.9% 1,000 ML IV ONE (12:00)
[2024-01-05 12:02] LABS: SGPT/ALT > 3300 U/L (5-49)
[2024-01-05] MEDS ORDERED: NOREPINEPHRINE BITARTRATE/D5W 250 ML IV ONE ×2 (12:51→12:53)
[2024-01-05 12:57] LABS: ABG BASE EXCESS -23.6 mmol/L (-2.0-2.0)
[2024-01-05 12:58] LABS: ARTERIAL BLOOD GAS PH 6.932 (7.35-7.45)
[2024-01-05] MEDS ORDERED: PROPOFOL 100 ML IV ONE (13:00)
[2024-01-05 13:06] LABS: HEMATOCRIT 38.2 % (37.0-47.0); MEAN CELL VOLUME 85.3 fl (81.0-99.0); MEAN CORPUSCULAR HGB 22.5 pg (27.0-31.0); MEAN CORPUSCULAR HGB CONC 26.4 g/dl (33.0-37.0); MEAN PLATELET VOLUME 10.2 fl (9.6-12.3); NUCLEATED RED BLOOD CELL 0.1 10*3/uL (0.0-0.0); NUCLEATED RED BLOOD CELL 0.5 % (0.0-0.0); PLATELET COUNT AUTOMATED 236 10*3/uL (130-400); RED BLOOD COUNT 4.48 10*6/uL (4.10-5.10); RED CELL DISTRI WIDTH 20.4 % (0-14.5); WHITE BLOOD COUNT 20.2 10*3/uL (4.8-10.8)
[2024-01-05 13:07] LABS: MANUAL DIFF REFLEX YES
[2024-01-05 13:12] LABS: TOTAL CELLS COUNTED 100 #CELLS
[2024-01-05 13:16] LABS: BURR CELLS MODERATE; PLATELET SUFFICIENCY NORMAL (NORMAL); POLYCHROMASIA SLIGHT; SCHISTOCYTES FEW
[2024-01-05] MEDS ORDERED: DOPAMINE IV ONE (13:18)
[2024-01-05] MEDS ORDERED: DEXTROSE IV ONE (13:18)
[2024-01-05 13:20] LABS: ALKALINE PHOSPHATASE 126 U/L (46-116); BUN 33 mg/dl (9-23); CHLORIDE 97 mmol/L (98-107); POTASSIUM 5.1 mmol/L (3.4-5.1); TOTAL PROTEIN 6.5 gm/dL (6.0-8.0)
[2024-01-05 13:24] LABS: SGPT/ALT > 3300 U/L (5-49)
[2024-01-05 13:34] LABS: ABG BASE EXCESS -23.1 mmol/L (-2.0-2.0)
[2024-01-05 13:35] LABS: ARTERIAL BLOOD GAS PH 6.839 (7.35-7.45)
[2024-01-05] MEDS ORDERED: CALCIUM GLUCONATE 1 GM/10 ML VIAL ONE (13:36)
[2024-01-05] MEDS ORDERED: Vancomycin Hydrochloride 1,000 MG in SODIUM CHLORIDE 0.9% 250 ML IV SCH (16:00)
[2024-01-06] MEDS ORDERED: EPINEPHrine Hydrochloride 1 MG/10 ML SYR IV ONE (12:53)
[2024-01-06] MEDS ORDERED: ATROPINE SULFATE 1 MG/10 ML SYR IV ONE (12:53)
[2024-01-06] MEDS ORDERED: SODIUM BICARBONATE 50 MEQ/50 ML SYR IV ONE (12:53)
== END 2024-01-06 04:30 | DRG 871 ==
LOC: ED 16:42 → 4E 22:21 → EDHOLD 22:21 → 4E 01-03 14:59 → ICCU 01-05 12:07
PROVIDERS: Internal Medicine; Internal Medicine Nephrology; Student in an Organized Health Care Education/Training Program; Surgery Surgical Critical Care; ADMIT Internal Medicine; ATTEND Internal Medicine
PROC: 0BH18EZ Insertion of Endotracheal Airway into Trachea, Via Natural or Artificial Opening Endoscopic (ICD-10-PCS; principal; 2024-01-05)
DX: A41.9 Sepsis, unspecified organism (principal); I21.4 Non-ST elevation (NSTEMI) myocardial infarction; J96.01 Acute respiratory failure with hypoxia; N17.0 Acute kidney failure with tubular necrosis; I50.33 Acute on chronic diastolic (congestive) heart failure; J44.1 Chronic obstructive pulmonary disease with (acute) exacerbation; L03.116 Cellulitis of left lower limb; L03.115 Cellulitis of right lower limb; F14.129 Cocaine abuse with intoxication, unspecified; I11.0 Hypertensive heart disease with heart failure; M06.9 Rheumatoid arthritis, unspecified; I27.20 Pulmonary hypertension, unspecified; G89.29 Other chronic pain; M54.50 Low back pain, unspecified; N18.32 Chronic kidney disease, stage 3b; E11.22 Type 2 diabetes mellitus with diabetic chronic kidney disease; E11.649 Type 2 diabetes mellitus with hypoglycemia without coma; I95.9 Hypotension, unspecified; E78.2 Mixed hyperlipidemia; M48.061 Spinal stenosis, lumbar region without neurogenic claudication; R74.01 Elevation of levels of liver transaminase levels; F19.10 Other psychoactive substance abuse, uncomplicated; D64.9 Anemia, unspecified; I25.10 Atherosclerotic heart disease of native coronary artery without angina pectoris; R33.9 Retention of urine, unspecified; Z66 Do not resuscitate; Z82.49 Family history of ischemic heart disease and other diseases of the circulatory system; Z83.3 Family history of diabetes mellitus; Z83.6 Family history of other diseases of the respiratory system; Z51.5 Encounter for palliative care